=== PATIENT | female | born 1975 | race Caucasian/White ===

== ENCOUNTER → 2017-01-06 | Outpatient (CLI) | payer BC ==
[~2017-01-06] MED LIST: ADVAIR IH; ALBUTEROL0.09 MG/A1 IH; ALLEGRA-D 12 HO1 TER PO; ASPIRIN E.C. 8181 MG PO; BCP TD; BYSTOLIC10 MG PO; CATAFLAM50 MG PO; CLARITIN 1010 MG/TAB PO; CLEOCIN HCL300 MG PO; FERROUS SULFAT325 MG PO; HYZAAR 12.5 MG-1 TA1 PO; KLONOPIN 0.5MG0.5 MG PO; KLOR-CON M2020 MEQ PO; LORTAB 5/500 501 TAB PO; PROVENTIL0.09 MG/A1 IH; VITAMIN D PO; ZESTORETIC 25 M1 TAB PO; ZESTRIL 20MG TA20 MG PO; klor-con PO
== END ==
LOC: COL.RAD 01-03 13:30
DX: M25.552 Pain in left hip (principal)

== ENCOUNTER 2019-03-23 21:10 | Emergency (ER) | payer BC ==
[~2019-03-23] VITALS: Ht 154.9 cm; Wt 81.8 kg
[2019-03-23] MEDS ORDERED: PREDNISONE20 MG PO (22:32)
[2019-03-24 00:19] VITALS: BP 133/81; PULSE 80
[2019-03-24] MEDS ORDERED: PRINZIDE 12.5 M1 TA1 PO (00:24)
[2019-03-24] MEDS ORDERED: ZESTORETIC 25 M1 TAB PO (00:24)
[2019-03-24] MEDS ORDERED: ZOLOFT 100MG100 MG PO (00:25)
== END 2019-03-24 00:28 | disposition home or self-care (01) ==
LOC: COL.ER 21:10
DX: T78.3XXA Angioneurotic edema, initial encounter (principal); I10 Essential (primary) hypertension; Z87.892 Personal history of anaphylaxis
CPT/HCPCS: J1200; J2930; J7030; J7512

== ENCOUNTER → 2019-03-24 | Outpatient (CLI) | payer BC ==
[~2019-03-24] MED LIST changes: +PREDNISONE20 MG PO; +PRINZIDE 12.5 M1 TA1 PO; +ZOLOFT 100MG100 MG PO
[2019-03-24 14:04] LABS: HEMATOCRIT 37.8 % (37.0-47.0); HEMOGLOBIN 13.2 g/dl (12.5-16.0); MEAN CELL VOLUME 83 fl (80.0-100.0); MEAN CORPUSCULAR HEMOGLOBIN 29 pg (27.0-31.0); MEAN CORPUSCULAR HGB CONC 35 g/dl (33.0-37.0); MEAN PLATELET VOLUME 10.3 fl (7.4-10.4); PLATELET COUNT 371 K/mm3 (130-400); RED BLOOD COUNT 4.53 M/mm3 (4.10-5.30); REDCELL DISTRIBUTION WIDTH-CV 13.3 % (11.5-14.5)
[2019-03-24 14:13] LABS: ALBUMIN 4.2 gm/dL (3.5-5.0); BILIRUBIN,TOTAL 0.3 mg/dL (0.0-1.0); CALCIUM 9.9 mg/dL (8.4-10.2); CHOLESTEROL RISK RATIO 4.5; CREATININE, serum 0.51 (0.52-1.25); POTASSIUM 3.2 mmol/L (3.4-5.0); TOTAL PROTEIN 7.7 gm/dL (6.4-8.2)
[2019-03-24 14:43] LABS: TSH w REFLEX 0.627 uIU/mL (0.465-4.680)
[2019-03-24 23:09] LABS: URINE MICROALBUMIN 0.9 mg/dL (0.0-1.7)
== END ==
LOC: COL.LAB 13:20
PROVIDERS: Family Medicine
DX: R73.03 Prediabetes (principal)

== ENCOUNTER → 2019-05-13 | Outpatient (CLI) | payer BC ==
[2019-05-17 03:14] LABS: RAST ALMOND XXX; RAST COCONUT XXX; RAST PEANUT IGE XXX; RAST SESAME SEED XXX
== END ==
LOC: COL.LAB 13:46
PROVIDERS: Family Medicine
DX: L50.9 Urticaria, unspecified (principal)

== ENCOUNTER 2019-08-29 11:09 | Emergency (ER) | payer BC ==
[~2019-08-29] VITALS: Ht 152.4 cm; Wt 84.1 kg
[2019-08-29 11:21] VITALS: TEMP 97.7
[2019-08-29] MEDS ORDERED: SINGULAIR 110 MG/TAB PO (11:46)
[2019-08-29] MEDS ORDERED: HCTZ 25MG TAB25 MG PO (11:46)
[2019-08-29] MEDS ORDERED: TOPROL XL100 MG PO (11:46)
[2019-08-29] MEDS ORDERED: WOMEN'S DAILY1 TAB PO (11:47)
[2019-08-29 13:16] LABS: HEMATOCRIT 40.3 % (37.0-47.0); HEMOGLOBIN 13.8 g/dl (12.5-16.0); MEAN CELL VOLUME 86 fl (80.0-100.0); MEAN CORPUSCULAR HEMOGLOBIN 29 pg (27.0-31.0); MEAN CORPUSCULAR HGB CONC 34 g/dl (33.0-37.0); PLATELET COUNT 296 K/mm3 (130-400); RED BLOOD COUNT 4.71 M/mm3 (4.10-5.30)
[2019-08-29 13:48] LABS: BAND 4 % (0-10); EOSINOPHIL 1 % (0-4); LYMPHOCYTE 32 % (20.0-51.0); NEUTROPHILS 58 % (42.0-75.2); PLATELET ESTIMATE NORMAL (NORMAL)
[2019-08-29] MEDS ORDERED: AMOXICILLIN 8751 TAB PO (14:45)
[2019-08-29 15:00] VITALS: BP 168/106; PULSE 63
== END 2019-08-29 15:00 | disposition home or self-care (01) ==
LOC: COL.ER 11:09
PROVIDERS: Nurse Practitioner Primary Care
DX: R59.0 Localized enlarged lymph nodes (principal); I10 Essential (primary) hypertension

== ENCOUNTER 2020-04-09 19:50 | Emergency (ER) | payer BC ==
[~2020-04-09] VITALS: Ht 154.9 cm; Wt 88.6 kg
[~2020-04-09 19:50] MED LIST changes: +AMOXICILLIN 8751 TAB PO; +HCTZ 25MG TAB25 MG PO; +SINGULAIR 110 MG/TAB PO; +TOPROL XL100 MG PO; +WOMEN'S DAILY1 TAB PO
[2020-04-09 19:57] VITALS: TEMP 98.2
[2020-04-09 20:39] LABS: BASO % 0.5 % (0.0-2.0); EOS # 0.3 (0.0-0.7); EOS % 4.3 % (0-4.0); GRAN # 3.7 (1.4-6.5); GRAN % 61.5 % (42.2-75.2); LYMPH # 1.5 (1.2-3.4); LYMPH % 24.5 % (20.0-51.0); MEAN CELL VOLUME 89 fl (80.0-100.0); MEAN CORPUSCULAR HGB CONC 34 g/dl (33.0-37.0); MEAN PLATELET VOLUME 10.1 fl (7.4-10.4); MONO # 0.4 (0.1-0.6); MONO % 7.1 % (1.7-9.3); PLATELET COUNT 329 K/mm3 (130-400); RED BLOOD COUNT 3.03 M/mm3 (4.10-5.30); REDCELL DISTRIBUTION WIDTH-CV 14.1 % (11.5-14.5)
[2020-04-09 20:58] LABS: ALBUMIN 3.9 gm/dL (3.5-5.0); BILIRUBIN,TOTAL 0.6 mg/dL (0.0-1.0); C-REACTIVE PROTEIN 1.6 mg/dL (0.0-0.9); CREATININE, serum 0.59 (0.52-1.25); POTASSIUM 3.2 mmol/L (3.4-5.0); TOTAL PROTEIN 7.3 gm/dL (6.4-8.2)
[2020-04-09 21:05] LABS: HEMATOCRIT 27.1 % (37.0-47.0); HEMOGLOBIN 9.2 g/dl (12.5-16.0); MEAN CORPUSCULAR HEMOGLOBIN 30 pg (27.0-31.0)
[2020-04-09 21:34] LABS: COLLECTION METHOD CLEAN CATCH
[2020-04-09 21:40] LABS: MUCOUS Present /lpf; PH 7 (5-8); SQUAMOUS EPITHELIAL 0-2 /hpf; URINE APPEARANCE Clear; URINE BACTERIA None Seen /hpf; URINE BILIRUBIN Negative (NEGATIVE); URINE BLOOD Negative (NEGATIVE); URINE COLOR Yellow; URINE GLUCOSE Negative (NEGATIVE); URINE KETONE Negative (NEGATIVE); URINE LEUKOCYTE ESTERASE Negative (NEGATIVE); URINE NITRATE Negative (NEGATIVE); URINE PROTEIN(semi-quant) Negative (NEGATIVE); URINE RBC 0-2 /hpf; URINE UROBILINOGEN Negative (NEGATIVE)
[2020-04-09 21:46] VITALS: PULSE 88
[2020-04-09 23:45] VITALS: BP 144/100
== END 2020-04-09 23:45 ==
LOC: COL.ER 19:50
PROVIDERS: Emergency Medicine
DX: N99.820 Postprocedural hemorrhage of a genitourinary system organ or structure following a genitourinary system procedure (principal); I10 Essential (primary) hypertension; F32.9 Major depressive disorder, single episode, unspecified
CPT/HCPCS: J1170; J2405; J7030; Q9967

== ENCOUNTER → 2020-09-08 | Outpatient (CLI) | payer BC | LOC: COL.RAD 11:36 | DX: R10.32 Left lower quadrant pain (principal) ==

== ENCOUNTER 2020-09-17 09:05 | Emergency (ER) | payer BC ==
[~2020-09-17] VITALS: Ht 154.9 cm; Wt 86.4 kg
[2020-09-17 09:17] VITALS: TEMP 97.1
[2020-09-17 09:40] LABS: BASO % 0.2 % (0.0-2.0); GRAN # 3.5 (1.4-6.5); GRAN % 60.1 % (42.2-75.2); HEMATOCRIT 37.7 % (37.0-47.0); HEMOGLOBIN 12.9 g/dl (12.5-16.0); LYMPH # 1.8 (1.2-3.4); LYMPH % 30.4 % (20.0-51.0); MEAN CELL VOLUME 84 fl (80.0-100.0); MEAN CORPUSCULAR HEMOGLOBIN 29 pg (27.0-31.0); MEAN CORPUSCULAR HGB CONC 34 g/dl (33.0-37.0); MEAN PLATELET VOLUME 10.4 fl (7.4-10.4); MONO # 0.5 (0.1-0.6); MONO % 8.8 % (1.7-9.3); PLATELET COUNT 345 K/mm3 (130-400); REDCELL DISTRIBUTION WIDTH-CV 13.7 % (11.5-14.5)
[2020-09-17 09:51] LABS: ALBUMIN 4.2 gm/dL (3.5-5.0); BILIRUBIN,TOTAL 0.6 mg/dL (0.0-1.0); CALCIUM 9.7 mg/dL (8.4-10.2); CREATININE, serum 0.51 (0.52-1.25); POTASSIUM 3.6 mmol/L (3.4-5.0); TOTAL PROTEIN 8.2 gm/dL (6.4-8.2)
[2020-09-17] MEDS ORDERED: AMOXICILLIN 8751 TAB PO (10:56)
[2020-09-17 11:05] VITALS: BP 121/77; PULSE 66
== END 2020-09-17 11:05 | disposition home or self-care (01) ==
LOC: COL.ER 09:05
PROVIDERS: Physician Assistant
DX: U07.1 COVID-19 (principal); J12.89 Other viral pneumonia; F41.9 Anxiety disorder, unspecified; Z87.442 Personal history of urinary calculi; Z90.710 Acquired absence of both cervix and uterus; Z88.8 Allergy status to other drugs, medicaments and biological substances
CPT/HCPCS: J7030

== ENCOUNTER 2020-10-27 15:56 | Emergency (ER) | payer BC ==
[~2020-10-27] VITALS: Ht 154.9 cm; Wt 84.1 kg
[2020-10-27 16:02] VITALS: TEMP 97.6
[2020-10-27] MEDS ORDERED: HYZAAR 25 MG-101 TAB PO (16:40)
[2020-10-27 17:02] LABS: COLLECTION METHOD CLEAN CATCH
[2020-10-27 17:05] LABS: BASO # 0.1 (0.0-0.2); BASO % 0.8 % (0.0-2.0); EOS # 0.2 (0.0-0.7); EOS % 2.3 % (0-4.0); GRAN # 4.6 (1.4-6.5); GRAN % 54.5 % (42.2-75.2); HEMATOCRIT 40.5 % (37.0-47.0); HEMOGLOBIN 14.4 g/dl (12.5-16.0); LYMPH # 2.9 (1.2-3.4); MEAN CELL VOLUME 85 fl (80.0-100.0); MEAN CORPUSCULAR HEMOGLOBIN 30 pg (27.0-31.0); MEAN CORPUSCULAR HGB CONC 36 g/dl (33.0-37.0); MEAN PLATELET VOLUME 11.2 fl (7.4-10.4); MONO # 0.7 (0.1-0.6); MONO % 8.2 % (1.7-9.3); PLATELET COUNT 372 K/mm3 (130-400); RED BLOOD COUNT 4.79 M/mm3 (4.10-5.30)
[2020-10-27 17:12] LABS: PH 5 (5-8); SQUAMOUS EPITHELIAL 0-2 /hpf; URINE APPEARANCE Clear; URINE BACTERIA None Seen /hpf; URINE BILIRUBIN Negative (NEGATIVE); URINE BLOOD Negative (NEGATIVE); URINE COLOR Yellow; URINE GLUCOSE 3+ (NEGATIVE); URINE KETONE Trace (NEGATIVE); URINE LEUKOCYTE ESTERASE Negative (NEGATIVE); URINE NITRATE Negative (NEGATIVE); URINE PROTEIN(semi-quant) Negative (NEGATIVE); URINE RBC 0-2 /hpf; URINE UROBILINOGEN Negative (NEGATIVE)
[2020-10-27 17:16] LABS: ALANINE AMINOTRANSFERASE 81 U/L (4-34); ALBUMIN 4.6 gm/dL (3.5-5.0); ALKALINE PHOSPHATASE 166 U/L (50-136); ANION GAP 14 mmol/L (7-16); AST,SGOT 123 U/L (15-37); BILIRUBIN,TOTAL 0.9 mg/dL (0.0-1.0); BLOOD UREA NITROGEN 19 mg/dL (7-17); CALCIUM 10.3 mg/dL (8.4-10.2); CARBON DIOXIDE 29 mmol/L (22-30); LIPASE 93 U/L (23-300); POTASSIUM 3.4 mmol/L (3.4-5.0); SODIUM 127 mmol/L (137-145); TOTAL PROTEIN 8.6 gm/dL (6.4-8.2)
[2020-10-27 17:21] LABS: ACETONE,SERUM NEGATIVE; CHLORIDE 84 mmol/L (98-107); GLUCOSE 617 mg/dL (74-106)
[2020-10-27] MEDS ORDERED: GLUCOPHAGE500 MG/TAB PO (19:30)
[2020-10-27] MEDS ORDERED: LANTUS100 U/ML SQ (20:15)
[2020-10-27 20:23] VITALS: BP 125/66; PULSE 89
== END 2020-10-27 20:27 | disposition home or self-care (01) ==
LOC: COL.ER 15:56
PROVIDERS: Physician Assistant
DX: E11.65 Type 2 diabetes mellitus with hyperglycemia (principal); U07.1 COVID-19; T78.3XXA Angioneurotic edema, initial encounter; L02.91 Cutaneous abscess, unspecified; R59.1 Generalized enlarged lymph nodes; I10 Essential (primary) hypertension; Z90.710 Acquired absence of both cervix and uterus; Z88.8 Allergy status to other drugs, medicaments and biological substances; Z79.4 Long term (current) use of insulin; X58.XXXA Exposure to other specified factors, initial encounter
CPT/HCPCS: J1815; J2405; J7030; J7120

== ENCOUNTER 2022-06-26 13:29 | Emergency (ER) | payer SELFPAY ==
[~2022-06-26] VITALS: Ht 154.9 cm; Wt 87.3 kg
[~2022-06-26 13:29] MED LIST changes: +GLUCOPHAGE500 MG/TAB PO; +HYZAAR 25 MG-101 TAB PO; +LANTUS100 U/ML SQ
[2022-06-26 14:17] LABS: BASO # 0.1 K/mm3 (0.0-0.2); BASO % 1.1 % (0.0-2.0); EOS # 0.1 K/mm3 (0.0-0.7); EOS % 2.1 % (0.0-4.0); GRAN # 3.1 K/mm3 (1.4-6.5); GRAN % 48.4 % (42.2-75.2); HEMATOCRIT 41.9 % (37.0-47.0); LYMPH # 2.6 K/mm3 (1.2-3.4); LYMPH % 41.2 % (20.0-51.0); MEAN CELL VOLUME 83 fl (80.0-100.0); MEAN CORPUSCULAR HEMOGLOBIN 30 pg (27-31); MEAN CORPUSCULAR HGB CONC 36 g/dl (33.0-37.0); MONO # 0.4 K/mm3 (0.1-0.6); PLATELET COUNT 336 K/mm3 (130-400); RED BLOOD COUNT 5.03 M/mm3 (4.10-5.30); REDCELL DISTRIBUTION WIDTH-CV 12.3 % (11.5-14.5)
[2022-06-26 14:27] LABS: ACETONE,SERUM NEGATIVE
[2022-06-26 14:35] LABS: ALANINE AMINOTRANSFERASE 64 U/L (0-55); ALBUMIN 4.2 gm/dL (3.5-5.0); ALKALINE PHOSPHATASE 173 U/L (40-150); ANION GAP 13 mmol/L (7-16); AST,SGOT 64 U/L (5-34); BILIRUBIN,TOTAL 0.7 mg/dL (0.2-1.2); BLOOD UREA NITROGEN 18 mg/dL (7-19); CALCIUM 10.3 mg/dL (8.4-10.2); CARBON DIOXIDE 23 mmol/L (22-29); CHLORIDE 98 mmol/L (98-107); GLUCOSE 377 mg/dL (70-99); LIPASE 26 U/L (8-78); POTASSIUM 3.1 mmol/L (3.5-4.5); SODIUM 134 mmol/L (136-145); TOTAL PROTEIN 8.2 gm/dL (6.2-8.1)
[2022-06-26 16:20] LABS: COLLECTION METHOD CLEAN CATCH
[2022-06-26 16:35] LABS: MUCOUS Present (NOT PRESENT); SQUAMOUS EPITHELIAL 0-2 /hpf (0-10); URINE BACTERIA None Seen /hpf (NONE SEEN); URINE RBC 0-2 /hpf (0-2)
[2022-06-26 16:36] LABS: PH 5 (5-8); URINE APPEARANCE Clear (CLEAR/HAZY); URINE BLOOD Negative (NEGATIVE); URINE COLOR Yellow (YELLOW); URINE GLUCOSE 2+ (NEGATIVE); URINE KETONE Negative (NEGATIVE); URINE NITRATE Negative (NEGATIVE); URINE PROTEIN(semi-quant) 1+ (NEGATIVE); URINE UROBILINOGEN Negative (NEGATIVE)
[2022-06-26 16:51] VITALS: TEMP 98.8
[2022-06-26 17:45] VITALS: BP 147/98; PULSE 81
== END 2022-06-26 17:45 | disposition home or self-care (01) ==
LOC: COL.ER 13:29
PROVIDERS: Physician Assistant
DX: E11.65 Type 2 diabetes mellitus with hyperglycemia (principal); E66.9 Obesity, unspecified; R74.01 Elevation of levels of liver transaminase levels; Z79.4 Long term (current) use of insulin
CPT/HCPCS: J2405; J7030; Q9967